=== PATIENT | female | born 1965 | race Caucasian/White ===

== ENCOUNTER 2022-03-26 09:23 | Emergency (ER) | payer OTHER, SELFPAY ==
--- NOTE | 2022-03-26 09:25 | ED.EAR ---
HPI - Ear Problem General Chief complaint: Ear Stated complaint: Ear Pain Time Seen by Provider: 03/26/22 09:24 Source: patient and family Mode of arrival: ambulatory Limitations: no limitations History of Present Illness HPI Narrative: Ms. Marin is a 57-year-old female patient presenting to the clinic today with complaints of right ear swelling since this morning. She reports this has happened before and she had cellulitis of her ear. She reports that her outer ear is red, swelling, and itching she denies any pain but does have some swollen lymph nodes just below her ear. Related Data Allergies Allergy/AdvReac Type Severity Reaction Status Date / Time No Known Allergies Allergy Verified 03/26/22 09:39 Review of Systems Review of Systems: Pertinent positives per HPI. Patient denies any fever, chills, rash, headache, visual changes, dizziness, cough, shortness of breath, chest pain, palpitations, nausea, vomiting, diarrhea, constipation, abdominal pain, or any urinary issues. PMFSH Comments At the time of my signature, I reviewed and agree with the nursing past medical, surgical, social, and family history. There is no relevant family history pertinent to the patient complaint. Exam Narrative: General: Well-developed, well nourished, in no apparent distress Head: Normocephalic, atraumatic Eyes: Pupils equally round and reactive to light bilaterally, EOM intact, sclera and conjunctive clear, no discharge, lids normal Ears: TMs intact and clear, ear canals clear, no drainage, grossly hearing normal. external ear swelling and redness- crusting noted in the back of the ear without sign of any other drainage, swollen lymph node just below ear Nose: Nares patent, no discharge, no inflammation, no sinus tenderness. Mouth: Oral pharynx without lesions or masses, good dentition, MMM. Neck: Supple, trachea midline, no enlargement of anterior or posterior cervical nodes, no thyroid masses or goiter palpable. Cardio: Regular rate and rhythm, s1 and s2 normal, no murmur appreciated. Resp: Clear to auscultation bilaterally, no rhonchi, rales, wheezing or rubs Course Course Emergency Course: Portions of this record may have been created with voice recognition software. Level of Care: Express Care Visit Vital Signs Vital signs: Vital Signs Temperature 37.5 C 03/26/22 09:31 Pulse Rate 75 03/26/22 09:31 Respiratory Rate 16 03/26/22 09:31 Blood Pressure 121/60 03/26/22 09:31 Pulse Oximetry 100 03/26/22 09:31 Oxygen Delivery Room Air 03/26/22 09:31 Temperature 37.5 C 03/26/22 09:31 Pulse Rate 75 03/26/22 09:31 Respiratory Rate 16 03/26/22 09:31 Blood Pressure 121/60 03/26/22 09:31 Pulse Oximetry 100 03/26/22 09:31 Oxygen Delivery Room Air 03/26/22 09:31 Vital signs reviewed Medical Decision Making MDM Narrative Medical decision making narrative: At the time of visit patient is resting comfortably on the exam table. I suspect the patient may have cellulitis versus allergic reaction to the right ear. She does have some lymph node involvement so I will treat with a prescription of doxycycline as well as give a short course of prednisone to help with the swelling and itching. Supportive measures were discussed with the patient she voiced understanding of discharge instructions and agrees to the treatment plan Differential Diagnosis Differential Diagnosis: otitis media, otitis externa, eustachian tube dysfunction, and outer ear infection Vital Signs Vital Signs: Vital Signs Temperature 37.5 C 03/26/22 09:31 Pulse Rate 75 03/26/22 09:31 Respiratory Rate 16 03/26/22 09:31 Blood Pressure 121/60 03/26/22 09:31 Pulse Oximetry 100 03/26/22 09:31 Oxygen Delivery Room Air 03/26/22 09:31 Temperature 37.5 C 03/26/22 09:31 Pulse Rate 75 03/26/22 09:31 Respiratory Rate 16 03/26/22 09:31 Blood Pressure 121/60 03/26/22 09:31 Pulse Oximetry 100 03/03
[2022-03-26 09:31] VITALS: BP 121/60; PULSE 75; RESP 16; TEMP 37.5; O2SAT 100
== END 2022-03-26 09:45 | disposition home or self-care (01) ==
LOC: EXPBETH 09:28
PROVIDERS: Emergency Provider Nurse Practitioner Family; PCP Internal Medicine Infectious Disease
DX: R59.1 Generalized enlarged lymph nodes (principal)
CPT/HCPCS: 99213; G0463

== ENCOUNTER 2023-05-06 17:13 | Emergency (ER) | payer OTHER, SELFPAY ==
[2023-05-06 17:17] VITALS: BP 126/72; PULSE 84; RESP 18; TEMP 37.1; O2SAT 96
--- NOTE | 2023-05-06 17:45 | ED.EAR ---
HPI - Ear Problem General Chief complaint: Ear Stated complaint: ear Time Seen by Provider: 05/06/23 17:46 Source: patient, RN notes reviewed and old records reviewed Mode of arrival: ambulatory Limitations: no limitations History of Present Illness HPI Narrative: 58 year old female presents to [facility] care with complaints of right external ear swelling and redness with warmth which initially started yesterday and then increased today. Patient reports that this has happened in the past and resolved with antibiotics. Patient reports that she has noted also some swelling to her. ear canal and some discomfort. Patient has no mastoid swelling or any periauricular lymph node swelling.Patient has no open wounds on external ear or any weeping from tissues redness noted of exterrnal ear. MD Complaint: ear pain and other (external ear red swollen and ear canal irritated) Location: right ear Duration: constant Severity: moderate Discharge from ear: Reports no Treatment prior to arrival: oral analgesic (Tylenol) Related Data Allergies Allergy/AdvReac Type Severity Reaction Status Date / Time No Known Allergies Allergy Verified 03/26/22 09:39 Review of Systems Review of Systems: CONSTITUTIONAL: Denies malaise, chills, sweats, or fever. EYES: Denies visual changes, redness, or discharge. ENT:Denies rhinorrhea, congestion, sinus pain, right external ear pain and canal irritation and no sore throat. CARDIOVASCULAR: Denies chest pain, palpitations, or edema. RESPIRATORY: Reports no cough.? Denies dyspnea. GASTROINTESTINAL: Denies abdominal pain, nausea, vomiting, diarrhea SKIN: Denies rash or itching. MUSCULOSKELETAL: Denies myalgia. NEUROLOGIC: Denies headache. All systems reviewed & are unremarkable except as noted in HPI and below PMFSH Surgical History Surgical History (Updated 05/07/23 @ 16:33 by Tiffanie Ryan NP) History of endometrial ablation Social History Social History (Updated 05/07/23 @ 16:34 by Tiffanie Ryan NP) Smoking status: Never smoker Alcohol intake: current Alcohol use details: rare social Substance use type: does not use Living arrangements: with family Gender identity (if verbalized by the patient): Female Comments At time of signature, agree with nursing past medical, surgical, social and family history. There is no relevant family history pertinent to the presenting complaint Exam Narrative: GENERAL: Well-appearing, well-nourished, and in no acute distress. HEAD: Normocephalic EYES: PERRLA, conjunctivae clear ENT: Nares clear, turbinates edematous and erythematous, clear discharge. Mucous membranes moist. TM's pearly willett with dull light reflex bilaterally; Right external ear red,swollen and warm, right ear canal irritated,mild tragal tendernessright ear, no lymph node swelling or mastoid redness or swelling.. Oropharynx erythematous without lesions. Tonsils not enlarged and without exudate, no drooling, no hoarseness, no trismus, uvula midline. NECK: Supple. No lymphadenopathy CHEST: Clear to auscultation, breath sounds equal. No wheezing, rhonchi, rales, or stridor. No respiratory distress, speaks in full sentences. HEART: Regular rate and rhythm. No murmur heard. SKIN: Warm, dry, no rash. NEURO: Alert and oriented x3. PSYCH: Normal mood and affect Course Course Emergency Course: Patient is aware of diagnosis, understands and agrees to treatment plan.? Anticipatory guidance given.? Patient agrees to follow-up as directed and is aware of reasons to seek care at the emergency department. Portions of this record may have been created with voice recognition software Level of Care: Express Care Visit Vital Signs Vital signs: Vital Signs Temperature 37.1 C 05/06/23 17:17 Pulse Rate 84 05/06/23 17:17 Respiratory Rate 18 05/06/23 17:17 Blood Pressure 126/72 05/06/23 17:17 Pulse Oximetry 96 05/06/23 17:17 Oxygen Deliver
== END 2023-05-06 18:11 | disposition home or self-care (01) ==
PROVIDERS: Emergency Provider Registered Nurse; PCP Internal Medicine Infectious Disease
DX: H60.91 Unspecified otitis externa, right ear (principal); H60.11 Cellulitis of right external ear
CPT/HCPCS: 99213; G0463